=== PATIENT | female | born 1990 | race Caucasian/White ===

== ENCOUNTER 2019-09-15 13:21 | Emergency (ER) | payer BC ==
[2019-09-15 13:31] VITALS: BP 146/73; PULSE 98; TEMP 98.5; BMI 33.9
--- NOTE | 2019-09-15 13:48 | PDOC ---
History of Present Illness - General Chief Complaint: Pain, Acute Stated Complaint: UTI Time Seen by Provider: 09/15/19 13:29 History Source: Patient Exam Limitations: No Limitations - History of Present Illness Travel History: No Initial Comments: 09/15/19 13:46 HISTORY OF PRESENT ILLNESS: 29-year-old woman denies medical history presents emergency department for evaluation of pelvic pain worsening over the past 4 days. Patient was seen and evaluated at urgent care center told she had a UTI was treated with Macrobid. Symptoms improved slightly but never with full resolution. Patient was then reevaluated and treated with Diflucan at that time. Patient reports there is been no change in symptoms after treated with fluconazole. She denies any fevers, chills, dysuria, hematuria, rectal bleeding, constipation, diarrhea, vaginal discharge. Patient does have a hormonal IUD in place which is been present for the past 1 year. No recent travel or sick contacts. PAST MEDICAL HISTORY: Denies past medical history SURGICAL HISTORY: Denies ALLERGIES: No known drug allergies REVIEW OF SYSTEMS General/Constitutional: Denies fever or chills. Denies weakness, weight change. HEENT: Denies change in vision. Denies ear pain or discharge. Denies sore throat. Cardiovascular: Denies chest pain or shortness of breath. Respiratory: Denies cough, wheezing, or hemoptysis. Gastrointestinal: Denies nausea, vomiting, diarrhea or constipation. Denies rectal bleeding. Genitourinary: See HPI Musculoskeletal: Denies joint or muscle swelling or pain. Denies neck or back pain. Skin and breasts: Denies rash or easy bruising. Neurologic: Denies headache, vertigo, loss of consciousness, or loss of sensation. Psychiatric: Denies depression or anxiety. Endocrine: Denies increased thirst. Denies abnormal weight change. Hematologic/Lymphatic: Denies anemia, easy bleeding, or history of blood clots. Allergic/Immunologic: Denies hives or skin allergy. Denies latex allergy. PHYSICAL EXAM General Appearance: Well-appearing, appropriately dressed. No apparent distress, no intoxication. Gastrointestinal/Abdominal: Normal bowel sounds. Abdomen soft, non-distended. No tenderness or rebound tenderness. No organomegaly, pulsatile mass, guarding, hernia, hepatomegaly, splenomegaly. Integumentary: Appropriate color, dry, warm. No cyanosis, erythema, jaundice or rash Past History - Medical History Allergies/Adverse Reactions: Allergies Allergy/AdvReac Type Severity Reaction Status Date / Time No Known Allergies Allergy Verified 09/15/19 13:25 Home Medications: Ambulatory Orders Fluconazole [Diflucan] 150 mg PO ONCE 09/15/19 metroNIDAZOLE [Metronidazole] 500 mg PO BID #10 tablet 09/15/19 COPD: No - Reproductive History Is Patient Now?: No - Psycho-Social/Smoking History Smoking History: Unknown if ever smoked - Substance Abuse Hx (Audit-C & DAST Scrn) How often the patient has a drink containing alcohol: Monthly or less Score: In Men: 4 or > Positive; In Women: 3 or > Positive: 1 Screen Result (Pos requires Nsg. Audit-10AR): Negative In the last yr the pt used illegal drug/Rx for NonMed reason: No Score: Yes response is considered Positive: 0 Screen Result (Positive result requires Nsg. DAST-10): Negative *Physical Exam - Vital Signs Last Vital Signs Temp Pulse Resp BP Pulse Ox 98.5 F 98 H 18 146/73 99 09/15/19 13:27 09/15/19 13:27 09/15/19 13:27 09/15/19 13:27 09/15/19 13:27 Medical Decision Making - Medical Decision Making 09/15/19 14:31 A/P: 29-year-old woman with pelvic tingling for the past 4 days Abdominal exam is benign [employer] exam performed-no cervical motion tenderness. No adnexal tenderness. White and odorous discharge present in the vaginal vault. IUD string present. Bedside ultrasound reveals proper placement of IUD Laboratory Tests 09/15/19 13:59 Urine Color Yellow Urine Appearance Clear Urine pH 5.5 Ur Specific [place] 1.027 Urine Protein Negative Urine Glucose (UA) Negative Urine Ketones Trace H Urine Blood Negative Urine Nitrite Negative Urine Bilirubin Negative Urine Urobilinogen 0.2 Ur Leukocyte Esterase Negative Urine HCG, Qual Negative As urinalysis is not suggestive of infection patient was recently treated for UTI will defer treatment until culture has returned. Flagyl 500 mg twice daily for the next 5 days to treat bacterial vaginosis Discharge home I discussed the physical exam findings, ancillary test results and final diagnoses with the patient. I answered all of the patient's questions. The patient was satisfied with the care received and felt comfortable with the discharge plan and treatment plan. The patient will call their primary care physician within 24 hours to arrange follow-up and will return to the Emergency Department with any new, persistent or worsening symptoms. Portions of this note have been documented using voice recognition software. As a result, errors may occur in the victorian literature professor process. Effort has been made to correct all grammatical and victorian literature professor error, but some may have been missed which may produce sporadic inaccurate victorian literature professor or nonsensical phrases. Discharge - Discharge Information Problems reviewed: Yes Clinical Impression/Diagnosis: BV (bacterial vaginosis) Condition: Fair Disposition: HOME - Admission No - Additional Discharge Information Prescriptions: metroNIDAZOLE [Metronidazole] 500 mg PO BID #10 tablet - Follow up/Referral - Patient Discharge Instructions Additional Instructions: Take metronidazole 500 mg twice a day for the next 5 days. Avoid alcohol while taking this medication. Do not insert anything into the vagina until improved. keep well-hydrated. Keep your appointment with your [facility] [facility] [facility] on Tuesday as previously scheduled. Return to the emergency department any new or worsening symptoms. Thank you very much for choosing us to provide your emergent healthcare needs. - Post Discharge Activity
[2019-09-15 14:24] LABS: PH,URINE 5.5 (5.0-8.0); URINE APPEARANCE CLEAR; URINE BILIRUBIN NEGATIVE (NEGATIVE); URINE COLOR YELLOW; URINE GLUCOSE (UA) NEGATIVE (NEGATIVE); URINE KETONE TRACE (NEGATIVE); URINE LEUK ESTERASE NEGATIVE (NEGATIVE); URINE NITRITE NEGATIVE (NEGATIVE); URINE PROTEIN NEGATIVE (NEGATIVE); URINE UROBILINOGEN 0.2 mg/dL (0.2-1.0)
[2019-09-15 14:26] LABS: HCG,QUALITATIVE URINE Negative
== END 2019-09-15 15:06 | disposition home or self-care (01) ==
LOC: JERFT 13:21
DX: N76.0 Acute vaginitis (principal)
CPT/HCPCS: 36415; 81003; 84703; 87070; 87077; 87086; 87186; 87205; 87491; 87591; 99283-25